=== PATIENT | female | born 2000 | race Caucasian/White ===

== ENCOUNTER 2024-07-18 05:44 | Inpatient (IN) | payer BC ==
[2024-07-18] VITALS (41 sets, daily range): BP systolic 126–169; BP diastolic 61–121; PULSE 64–110; TEMP 97.9–98.5
[~2024-07-18] VITALS: Ht 165.1 cm; Wt 108.6 kg
--- NOTE | 2024-07-18 06:45 | NUR ---
PT AMBULATORY TO LR5 FOR INDUCTION OF LABOR BY PITOCIN. THE PATIENT STATES THAT SHE HAD BEEN HAVING CONTRACTIONS SINCE LAST NIGHT. ORIENTATION TO LABOR ROOM. PT TO THE BATHROOM TO VOID AND CHANGE INTO CLEAN GOWN. THE PATIENT MOVED TO LABOR BED, SVE 3-4/75/-3. INTACT. EFM AND TOCO PLACED, CONTRACTIONS 3-5 MINTUES APART, FHR IN THE 130'S WITH ACCELS, NO DECELS. CATEGORY 1 TRACING. PT DENIES BLEEDING AND HAS HAD GOOD MOVEMENT. PLAN OF CARE FOR INDUCTION DISCUSSED ALL QUESTIONS ASKED WERE ANSWERED. ADMISSION COMPLETED. NOTIFIED PHYSICIAN OF ARRIVAL AND ORDERS RCVD. NO OTHER CONCERNS AT THIS TIME.
--- NOTE | 2024-07-18 07:15 | NUR ---
IV STARTED, LABS OBTAINED FROM IV START. LR STARTED AT THIS TIME.
[2024-07-18] MEDS ORDERED: LR & Oxytocin 500 ML IV SCH ×2 (07:30)
[2024-07-18] MEDS ORDERED: LR 1,000 ML IV SCH (07:30)
[2024-07-18] MEDS ORDERED: Penicillin G Potassium 5,000,000 UNITS in NS 100 ML IV ONE (07:45)
[2024-07-18 07:56] LABS: COLLECTION METHOD CLEAN CATCH
[2024-07-18 08:03] LABS: BASO # 0.1 K/mm3 (0.0-0.2); BASO % 0.4 % (0.0-2.0); EOS # 0.1 K/mm3 (0.0-0.7); GRAN % 80.5 % (42.2-75.2); HEMATOCRIT 38.5 % (37.0-47.0); HEMOGLOBIN 12.9 g/dl (12.5-16.0); LYMPH # 1.7 K/mm3 (1.2-3.4); LYMPH % 13.3 % (20.0-51.0); MEAN CELL VOLUME 83 fl (80.0-100.0); MEAN CORPUSCULAR HEMOGLOBIN 28 pg (27-31); MEAN CORPUSCULAR HGB CONC 34 g/dl (33.0-37.0); MEAN PLATELET VOLUME 10.9 fl (7.4-10.4); MONO # 0.5 K/mm3 (0.1-0.6); MONO % 4.4 % (1.7-9.3); PLATELET COUNT 313 K/mm3 (130-400); RED BLOOD COUNT 4.64 M/mm3 (4.10-5.30)
[2024-07-18 08:12] LABS: URINE APPEARANCE CLEAR (CLEAR/HAZY); URINE BLOOD TRACE (NEGATIVE); URINE COLOR YELLOW (YELLOW); URINE GLUCOSE NEGATIVE (NEGATIVE); URINE KETONE NEGATIVE (NEGATIVE); URINE NITRATE NEGATIVE (NEGATIVE); URINE PROTEIN(semi-quant) TRACE (NEGATIVE); URINE UROBILINOGEN 0.2 E.U/dL (0.2-1.0)
[2024-07-18 08:22] LABS: ALBUMIN 2.3 g/dL (3.5-5.0); BILIRUBIN,TOTAL 0.2 mg/dL (0.2-1.2); CALCIUM 9.3 mg/dL (8.4-10.2); CREATININE, serum 0.61 mg/dL (0.57-1.11); POTASSIUM 3.5 mEq/L (3.5-4.5); TOTAL PROTEIN 6.4 g/dl (6.2-8.1)
--- NOTE | 2024-07-18 08:35 | NUR ---
AT BEDSIDE EXAM /-2 AROM AT 0835. PT TOLERATED AROM WELL. DENIES ANY NEEDS AT THIS TIME. NO OTHER CONCERNS.
[2024-07-18] MEDS ORDERED: HUMULIN R 10100 U/ML SQ (08:46)
[2024-07-18] MEDS ORDERED: GLUCOPHAGE1000 MG PO (08:47)
[2024-07-18] MEDS ORDERED: TRANDATE 100MG100 MG PO (08:48)
[2024-07-18] MEDS ORDERED: PNV-SELECT1 TAB PO (08:49)
[2024-07-18] MEDS ORDERED: IRON TABLETS325 MG PO (08:50)
[2024-07-18] MEDS ORDERED: ROPivacaine PF 0.2% 200 ML IV ONE (09:47)
--- NOTE | 2024-07-18 10:23 | NUR ---
1002: [facility] AT BEDSIDE TO PLACE EPIDURAL. PT IS SITTING UP AT BEDSIDE, DISCUSSION REGARDING RISKS AND BENEFITS, PT AGREES TO CONTINUE. PT IN POSITION AND [facility] BEGINS. 1012: TEST DOSE ADMINISTERED PER [facility]. THE PATIENT TOLERATED THE PROCEDURE OK, PT WAS HAVING A DIFFICULT TIME WITH POSITIONING. AFTER REPOSITIONING PART WAY THROUGH, [facility] WAS SUCCESSFUL AND PATIENT WAS REPOSITIONED TO WEDGE LEFT WITH SIGNIFICANT RELIEF OF PAIN QUICKLY AFTER LAYING DOWN. NO OTHER CONCERNS AT THIS TIME.
[2024-07-18] MEDS ORDERED: LR 1,000 ML IV ONE (10:30)
[2024-07-18] MEDS ORDERED: ePHEDrine 50 MG/10 ML VIAL IV PRN (10:30)
[2024-07-18] MEDS ORDERED: diphenhydrAMINE 25 MG CAP PO PRN (10:30)
[2024-07-18] MEDS ORDERED: Naloxone 0.4 MG/ML VIAL IV PRN ×2 (10:30→16:15)
[2024-07-18] MEDS ORDERED: LR 500 ML IV PRN (10:30)
[2024-07-18] MEDS ORDERED: Ondansetron 4 MG/2 ML VIAL IV PRN (10:30)
[2024-07-18] MEDS ORDERED: diphenhydrAMINE 50 MG/ML 1 ML VIAL IV PRN (10:30)
[2024-07-18] MEDS ORDERED: Penicillin G Potassium 2,500,000 UNITS in NS 100 ML IV SCH (11:45)
--- NOTE | 2024-07-18 16:00 | NUR ---
AT 1445 PT'S MOTHER CAME OUT TO THE NURSE'S DESK AND STATES THAT THE PATIENT IS FEELING A LOT OF PRESSURE. THIS RN TO BEDSIDE SVE 10/100/+2 AT 1447. PREPARING THE ROOM FOR DELIVERY AT THIS TIME. 1500: PT BEGINS PUSHING WITH THIS RN. PT HAS GREAT MATERNAL EFFORT AND IS MOVING THE BABY VERY WELL. 1545: OF VIABLE MALE INFANT PER . NUCHAL X1 REDUCED BY AT TIME OF HEAD DELIVERY. INFANT PLACED ON MATERNAL ABDOMEN, CORD CLAMP DELAYED PER , CORD CUT BY FOB. MOVED TO MATERNAL CHEST FOR SKIN TO SKIN. CARE OF INFANT ASSUMED BY ASHLEY SAMPSON. PITOCIN STOPPED PER HOSPITAL POLICY. CORD BLOOD OBTAINED PER AND PASSED OFF TO CHARGE NURSE, ASHLEY CAMPBELL. 400ML OF AMNIOTIC FLUID IN DRAPE AT THIS TIME. 1550: OF INTACT PLACENTA PER . PITOCIN BOLUS AT 333ML/HR PER HOSPITAL POLICY STARTED AT THIS TIME. ASSESSMENT OF LACERATIONS, PER PATIENT HAS A RIGHT LABIAL LACERATION AND A 1ST DEGREE PERINEAL LACERATION. RIGHT LABIAL LAC REPAIRED WITH 3.0 CHROMIC ON SH, AND THE 1ST DEGREE WAS REPAIRED WITH A 2.[address]1. FUNDAL MASSAGE PER . DRAPE HAS 600ML OF BLOOD AND AMNIOTIC FLUID. PER , 200ML OF QBL. PER ASHLEY SAMPSON INFANT APGARS 8/9/9. 1600: REPAIR COMPLETE, EPIDURAL STOPPED AT THIS TIME. PT REPOSITIONED TO SEMIFOWLER WITH ICEPACK AND PERIPAD. RECOVERY BEGINS AT THIS TIME. NO OTHER CONCERNS AT THIS TIME.
[2024-07-18] MEDS ORDERED: Magnes Hydrox (MOM) 80 MG/ML 30 ML CUP PO PRN (16:15)
[2024-07-18] MEDS ORDERED: Phenylephrine/Mineral Oil/Petrolatum 57 GM TUBE RC PRN (16:15)
[2024-07-18] MEDS ORDERED: Measles/Mumps/Rubella Virus Vaccine Live w Diluent 0.5 ML VIAL SQ SCH (16:15)
[2024-07-18] MEDS ORDERED: Ibuprofen 600 MG TAB PO SCH (16:15)
[2024-07-18] MEDS ORDERED: Acetaminophen 500 MG TAB PO SCH (16:15)
[2024-07-18] MEDS ORDERED: oxyCODONE 5 MG TAB PO PRN (16:15)
[2024-07-18] MEDS ORDERED: Loratadine 10 MG TAB PO PRN (16:15)
[2024-07-18] MEDS ORDERED: Mag/Al Hydrox/Simeth Susp 30 ML CUP PO PRN (16:15)
[2024-07-18] MEDS ORDERED: Witch Hazel 50% Pads Bulk TUB TP PRN (16:15)
[2024-07-18] MEDS ORDERED: Tdap Vaccine 0.5 ML SYRINGE IM SCH (16:15)
[2024-07-18] MEDS ORDERED: Sennosides/Docusate 8.6-50 MG TAB PO SCH (17:00)
--- NOTE | 2024-07-18 18:30 | NUR ---
1830 EPID CATH DCD. UP TO BR PER SEARRASTEADY AND ANDRÉS WELL. UNABLE TO VOID. PERICARE DONE. BECAME LIGHTHEADED. TO 207 PER W/C AND ANDRÉS WELL. 1899 SCHEDULED MOTRIN AND TYLENOL GIVEN. FAMILY IN WITH FOOD.
[2024-07-18] MEDS ORDERED: traZODone 50 MG TAB PO PRN (21:00)
[2024-07-18] MEDS ORDERED: Labetalol 100 MG TAB PO SCH (21:00)
[2024-07-19 03:00] VITALS: BP 131/79; PULSE 72; TEMP 97.8
[2024-07-19 08:13] VITALS: BP 144/76; PULSE 82; TEMP 98.8
--- NOTE | 2024-07-19 09:26 | NUR ---
Initial visit; Parents thanked Suede Brusher for offering congratulations and God's blessings for the of their son. Suede Brusher thanked family for choosing [facility].
[2024-07-19] MEDS ORDERED: IBU600 MG PO (09:31)
[2024-07-19 13:15] VITALS: BP 132/76; PULSE 91; TEMP 98.6
[2024-07-19 20:25] VITALS: BP 135/82; PULSE 76; TEMP 98.4
[2024-07-20 08:45] VITALS: BP 155/82; PULSE 91; TEMP 97.7
--- NOTE | 2024-07-20 12:40 | NUR ---
Discharge education provided to patient. All questions asked were answered. Pt belongings gathered and accounted for. Pt denies any questions. Gift bag given. Pt ambulatory off the unit with this RN.
== END 2024-07-20 12:40 | disposition home or self-care (01) | DRG 807 ==
LOC: OB 05:44 → LDR 06:31 → OB 06:31
PROVIDERS: ADMIT Obstetrics & Gynecology
PROC: 10E0XZZ Delivery of Products of Conception, External Approach (ICD-10-PCS; principal; 2024-07-18)
PROC: 0HQ9XZZ Repair Perineum Skin, External Approach (ICD-10-PCS; 2024-07-18)
PROC: 0UQMXZZ Repair Vulva, External Approach (ICD-10-PCS; 2024-07-18)
PROC: 10907ZC Drainage of Amniotic Fluid, Therapeutic from Products of Conception, Via Natural or Artificial Opening (ICD-10-PCS; 2024-07-18)
PROC: 3E033VJ Introduction of Other Hormone into Peripheral Vein, Percutaneous Approach (ICD-10-PCS; 2024-07-18)
DX: O13.4 Gestational [pregnancy-induced] hypertension without significant proteinuria, complicating childbirth (principal); Z37.0 Single live birth; O24.424 Gestational diabetes mellitus in childbirth, insulin controlled; O99.344 Other mental disorders complicating childbirth; O99.824 Streptococcus B carrier state complicating childbirth; Z3A.39 39 weeks gestation of pregnancy; F41.9 Anxiety disorder, unspecified; F32.A Depression, unspecified; O99.02 Anemia complicating childbirth
CPT/HCPCS: J2540; J2590; J2795; J7120